=== PATIENT | female | born 2000 | race African-American/Black ===

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

== ENCOUNTER 2021-05-15 16:52 | Emergency (ER) | payer MEDICAID ==
[~2021-05-15] VITALS: Ht 165.1 cm; Wt 61.0 kg
[2021-05-15 16:54] VITALS: BP 150/90
== END 2021-05-15 18:03 | disposition left against medical advice (07) ==
LOC: ER 16:52
DX: Z53.21 Procedure and treatment not carried out due to patient leaving prior to being seen by health care provider (principal); J45.909 Unspecified asthma, uncomplicated